=== PATIENT | female | born 1965 | race American Indian/Alaskan Native ===

== ENCOUNTER 2017-09-04 15:51 | Emergency (ER) | payer OTHER, MEDICARE ==
[2017-09-04] MEDS ORDERED: FLEXERIL PO ONE (20:04)
[2017-09-04] MEDS ORDERED: TORADOL IM ONE (20:04)
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
[2017-09-04] MEDS ORDERED: TORADOL ONE (20:08)
[2017-09-05 01:38] VITALS: BP 130/81
== END 2017-09-04 21:18 | disposition home or self-care (01) ==
LOC: ED 15:51
DX: M54.5 Low back pain (principal); F17.200 Nicotine dependence, unspecified, uncomplicated; V49.9XXA Car occupant (driver) (passenger) injured in unspecified traffic accident, initial encounter; Y93.89 Activity, other specified; Y99.8 Other external cause status; Y92.410 Unspecified street and highway as the place of occurrence of the external cause
CPT/HCPCS: 96372; 99282; J1885

== ENCOUNTER 2020-12-09 14:38 | Emergency (ER) | payer MEDICARE ==
[2020-12-09 14:53] VITALS: BP 152/79
--- NOTE | 2020-12-09 17:02 | Emergency Department Report ---
[facility] Chief Complaint: Eye Problems Stated Complaint: LT EYE DRAINING Time Seen by Provider: 12/09/20 16:25 Duration: 4 Days Severity: mild Symptoms: Yes Eye Itching, Yes Eye Redness, Yes Mucous Drainage, Yes Blurred Vi yojana, No Eye Pain (Irritation), No Preceding URI, No H/O Allergic Rhinitis, No Contact Lens Use, No Trauma, No Fever ED Review of Systems ROS: Stated complaint: LT EYE DRAINING Other details as noted in HPI Comment: All other systems reviewed and negative ED Past Medical Hx - Past Medical History Previous Medical History?: No - Surgical History Past Surgical History?: Yes Additional Surgical History: rhinoplasty, knee arthoscopy - Social History Smoking Status: Current Every Day Smoker - Medications Home Medications: Home Medications Medication Instructions Recorded Confirmed Last Taken Type Ibuprofen [Motrin] 800 mg PO Q8HR PRN #40 tablet 09/04/17 Unknown Rx Cyclobenzaprine [Flexeril 10 MG 10 mg PO QHS #20 tablet 09/27/18 Unknown Rx TAB] Erythromycin [Erythromycin Ophth 1 strip OU QID 10 Days #1 tube 12/09/20 Unknown Rx Oint] [facility] Exam - Exam General: Vital signs noted. No distress. Alert and acting appropriately. Eye Exam: Left Injection, Left Mucous Discharge HEENT: No Nasal Congestion, No Pharyngeal Erythema Remainder of HEENT: Normal Lungs: No Cough, No Use of Accessory Muscles ED Course Vital Signs 12/09/20 14:52 Temperature 99.1 F Pulse Rate 98 H Respiratory 18 Rate Blood Pressure 152/79 [Right] O2 Sat by Pulse 99 Oximetry ED Medical Decision Making - Medical Decision Making 55-year-old -[place] female presents to the emergency room for 4-day history of left eye irritation with watery itchy and mucus drainage. Denies any fever chills no headache no nasal congestion no sore throat no eye pain. Patient will be treated for conjunctivitis with erythromycin for 10 days. Critical care attestation.: If time is entered above; I have spent that time in minutes in the direct care of this critically ill patient, excluding procedure time. ED Disposition Clinical Impression: Conjunctivitis, acute, left eye Disposition: DC-01 TO HOME OR SELFCARE Is pt being admited?: No Does the pt Need Aspirin: No Condition: Stable Instructions: Bacterial Conjunctivitis, Adult, [id number], How to Use Eye Drops and Eye Ointments Additional Instructions: Please take your medications as prescribed. Wash your hands before and after administering medication. Prescriptions: Erythromycin [Erythromycin Ophth Oint] 1 strip OU QID 10 Days #1 tube Referrals: [facility] [Provider Group] - 3-5 Days Forms: Work/School Release Form(ED)
== END 2020-12-09 18:04 | disposition home or self-care (01) ==
LOC: ED 14:38
DX: H10.32 Unspecified acute conjunctivitis, left eye (principal); F17.200 Nicotine dependence, unspecified, uncomplicated; Z79.899 Other long term (current) drug therapy; Z98.890 Other specified postprocedural states
CPT/HCPCS: 99281

== ENCOUNTER 2021-09-02 15:49 | Emergency (ER) | payer MEDICAID, MEDICARE ==
[2021-09-02 16:11] VITALS: BP 156/88
--- NOTE | 2021-09-02 21:14 | Emergency Department Report ---
ED General Adult HPI - General Chief complaint: GI Bleed Stated complaint: I am not sure if I am having rectal bleed Time Seen by Provider: 09/02/21 20:50 Source: patient, RN notes reviewed Mode of arrival: Ambulatory Limitations: No Limitations - History of Present Illness Initial comments: During the history and physical examination, I am chaperoned by Jamin Martinez This patient is a 56-year-old female, who presents to the ER today with a complaint of painless possible episode of rectal bleeding. Over the past week, she believes that she has defecated blood, but she is not certain. She denies physical pain. She denies vaginal bleeding. She denies additional complaints. No recent colonoscopy. She is to follow-up with her primary care doctor tomorrow for the same complaint. She does not take systemic anticoagulation. -: days(s) Consistency: intermittent Improves with: none Worsens with: none Associated Symptoms: denies other symptoms - Related Data Previous Rx's Medication Instructions Recorded Last Taken Type Ibuprofen [Motrin] 800 mg PO Q8HR PRN #40 tablet 09/04/17 Unknown Rx Cyclobenzaprine [Flexeril 10 MG 10 mg PO QHS #20 tablet 09/27/18 Unknown Rx TAB] Erythromycin [Erythromycin Ophth 1 strip OU QID 10 Days #1 tube 12/09/20 Unknown Rx Oint] Allergies Allergy/AdvReac Type Severity Reaction Status Date / Time No Known Allergies Allergy Verified 09/04/17 20:22 ED Review of Systems ROS: Stated complaint: BLEEDING FROM RECTUM/VAG DISCHARGE/JAUNDICE EYES Other details as noted in HPI Comment: All other systems reviewed and negative Gastrointestinal: as per HPI, other (Possible rectal bleeding). denies: hem atemesis, melena ED Past Medical Hx - Surgical History Additional Surgical History: rhinoplasty, knee arthoscopy - Social History Smoking Status: Current Every Day Smoker - Medications Home Medications: Home Medications Medication Instructions Recorded Confirmed Last Taken Type Ibuprofen [Motrin] 800 mg PO Q8HR PRN #40 tablet 09/04/17 Unknown Rx Cyclobenzaprine [Flexeril 10 MG 10 mg PO QHS #20 tablet 09/27/18 Unknown Rx TAB] Erythromycin [Erythromycin Ophth 1 strip OU QID 10 Days #1 tube 12/09/20 Unknown Rx Oint] ED Physical Exam - General Limitations: No Limitations General appearance: alert, in no apparent distress - Head Head exam: Present: atraumatic, normocephalic - Eye Eye exam: Present: normal appearance, EOMI. Absent: scleral icterus, conjunctival injection, nystagmus - ENT ENT exam: Present: normal exam, normal orophraynx, mucous membranes moist, normal external ear exam - Neck Neck exam: Present: normal inspection, full ROM. Absent: tenderness, men ingismus - Respiratory Respiratory exam: Present: normal lung sounds bilaterally. Absent: respiratory distress, wheezes, rales, rhonchi, stridor, decreased breath sounds - Cardiovascular Cardiovascular Exam: Present: regular rate, normal rhythm, normal heart sounds. Absent: bradycardia, tachycardia, irregular rhythm, systolic murmur, diastolic murmur, rubs, gallop - GI/Abdominal GI/Abdominal exam: Present: soft. Absent: distended, tenderness, guarding, rebound, rigid, pulsatile mass - Rectal Rectal exam: Present: normal inspection, normal rectal tone, heme (-) stool, other (Patient provides consent for rectal examination. Chaperoned by Jamin Glasgow). Absent: decreased rectal tone, heme (+) stool, black stool, bloody stool, fecal impaction - Extremities Exam Extremities exam: Present: normal inspection, full ROM, other (2+ pulses noted in the bilateral upper and lower extremities. There is no palpable cord. negative Homans sign. Muscular compartments are soft. The pelvis is stable.). Absent: pedal edema, calf tenderness - Back Exam Back exam: Present: normal inspection. Absent: tenderness, CVA tenderness (R), CVA tenderness (L), paraspinal tenderness, vertebral tenderness - Neurological Exam Neurological exam: Present: alert, oriented X3, normal gait, other (No facial droop. Tongue midline. Extraocular movements intact bilaterally. Facial sensation intact to light touch in V1, V2, V3 distribution bilaterally. 5 and a 5 strength in 4 extremities. Sensation intact to light touch in 4 extremit ies.). Absent: motor sensory deficit - Psychiatric Psychiatric exam: Present: normal affect, normal mood - Skin Skin exam: Present: warm, dry, intact, normal color. Absent: rash ED Course Vital Signs 09/02/21 16:07 Temperature 98.3 F Pulse Rate 79 Respiratory 16 Rate Blood Pressure 156/88 [Left] O2 Sat by Pulse 96 Oximetry ED Medical Decision Making - Lab Data Result diagrams: 09/02/21 21:24 Vital Signs 09/02/21 16:07 Temperature 98.3 F Pulse Rate 79 Respiratory 16 Rate Blood Pressure 156/88 [Left] O2 Sat by Pulse 96 Oximetry Lab Results 09/02/21 Range/Units 21:24 WBC 6.0 (4.5-11.0) K/mm3 RBC 4.23 (3.65-5.03) M/mm3 Hgb 12.6 (10.1-14.3) gm/dl Hct 39.0 (30.3-42.9) % MCV 92 (79-97) fl MCH 30 (28-32) pg MCHC 32 (30-34) % RDW 15.1 (13.2-15.2) % Plt Count 188 (140-440) K/mm3 - Medical Decision Making Differential diagnosis, including but not limited to: Angiodysplasia, diverticulosis, malignancy, anal fissure Assessment and plan: 56-year-old female who is afebrile, with reassuring vital signs, who is not icteric or jaundiced, with no right upper quadrant tenderness, no abdominal tenderness whatsoever, presenting to the ER today with a complaint of possibly having defecated blood. Has not had a colonoscopy as of yet. Following up with an outpatient primary care doctor tomorrow. Abdomen is soft and benign. Rectal exam shows no blood, guaiac negative, CBC unremarkable, no obvious anal fissure. Patient counseled that she may follow-up with an outpatient vacuum closing machine operator for further outpatient evaluation. Return precautions reviewed. Does not appear to have an emergent medical condition present at this time Critical care attestation.: If time is entered above; I have spent that time in minutes in the direct care of this critically ill patient, excluding procedure time. ED Disposition Clinical Impression: History of rectal bleeding Disposition: HOME / SELF CARE / HOMELESS Is pt being admited?: No Does the pt Need Aspirin: No Condition: Stable Additional Instructions: Recommend follow-up with a vacuum closing machine operator within the next month. It is important to have a colonoscopy after the age of 45-50, to evaluate for potential GI cancer, tumor, malignancy. [facility] is a local GI practice. Minimize/avoid consumption of Motrin, ibuprofen, Naprosyn, Aleve, tobacco, alcohol and smoke products. Please return to the emergency room right away with new pain, worsened pain, migration of pain, projectile vomiting, change in mental status, confusion, inability tolerate liquid feeds, new, worsened or different symptoms not present on the initial emergency room evaluation Referrals: PRIMARY CARE,MD [Primary Care Provider] - 3-5 Days [facility] [Provider Group] - 3-5 Days Forms: Accompanied Note, Work/School Release Form(ED)
[2021-09-02 21:39] LABS: Hemoglobin 12.6 gm/dl (10.1-14.3); Mean Corpuscular HGB Conc 32 % (30-34); Mean Corpuscular Volume 92 fl (79-97); Platelet Count 188 K/mm3 (140-440); Red Blood Count 4.23 M/mm3 (3.65-5.03); Red Cell Distribution Width 15.1 % (13.2-15.2)
== END 2021-09-02 23:20 | disposition home or self-care (01) ==
LOC: ED 15:49
DX: K62.5 Hemorrhage of anus and rectum (principal); Z98.890 Other specified postprocedural states; F17.200 Nicotine dependence, unspecified, uncomplicated
CPT/HCPCS: 36415; 82270; 85027; 99283